=== PATIENT | female | born 1995 | race Caucasian/White ===

== ENCOUNTER → 2019-11-03 23:07 | Observation (INO) ==
[~2019-11-03 23:07] MED LIST: Rho Immune Globulin 1,500 UNIT SYRINGE IM ONE
== END | disposition home or self-care (01) ==
LOC: 1NENULAB
PROVIDERS: ADMIT Student in an Organized Health Care Education/Training Program; ATTEND Student in an Organized Health Care Education/Training Program

== ENCOUNTER → 2020-01-09 12:05 | Observation (INO) ==
[2020-01-09 10:27] VITALS: BP 135/88
[2020-01-09 10:59] LABS: Alanine Aminotransferase 13 Units/L (7-52); Aspartate Amino Transferase 20 Units/L (13-39); BUN/Creatinine Ratio 12 (6-26); Blood Urea Nitrogen 8 mg/dL (6-20); Lactate Dehydrogenase 167 Units/L (140-271); Uric Acid 4.5 mg/dL (2.3-7.6); eGFR For African Americans > 60 (> 60); eGFR For Non-African Americans > 60 (> 60)
[2020-01-09 11:07] LABS: Basophils % 0.2 %; Eosinophils % 0.2 %; Hematocrit 34.2 % (35.3-44.9); Hemoglobin 11.5 g/dL (11.5-15.4); Immature Granulocytes % 0.6 % (0-4); Lymphocytes # 2.3 K/mcL (0.6-4.6); Lymphocytes % 19.1 %; Mean Corpuscular HGB Conc 33.6 g/dL (31.6-35.5); Mean Corpuscular Hemoglobin 28.8 pg (28.0-33.3); Mean Corpuscular Volume 85.7 fL (83.0-100.0); Mean Platelet Volume 10.2 fL (9.4-12.4); Monocytes # 0.7 K/mcL (0.0-1.3); Monocytes % 5.7 %; Neutrophils # 8.9 K/mcL (1.6-8.9); Platelet Count 312 K/mcL (140-400); Red Blood Count 3.99 M/mcL (3.82-4.97); Red Cell Distribution Width 12.1 % (11.5-14.5); Segmented Neutrophils % 74.2 %
[2020-01-09 11:42] LABS: Protein/Creatinine Ratio,Urine 0.2 mg/mg (0.00-0.20)
== END | disposition home or self-care (01) ==
LOC: 1NENULAB
PROVIDERS: ADMIT Obstetrics & Gynecology; ATTEND Obstetrics & Gynecology

== ENCOUNTER 2020-01-15 04:05 | Inpatient (IN) ==
[2020-01-15] MEDS ORDERED: Metoclopramide 10 MG/2 ML VIAL IVP PRN (04:45)
[2020-01-15] MEDS ORDERED: *HR* FentaNYL (PF) 100 MCG/2 ML VIAL IVP PRN (04:45)
[2020-01-15] MEDS ORDERED: Famotidine 20 MG/2 ML VIAL IVP PRN (04:45)
[2020-01-15] MEDS ORDERED: Ondansetron 4 MG/2 ML VIAL IVP PRN (04:45)
[2020-01-15] MEDS ORDERED: Azithromycin 500 MG in 0.9 % Sodium Chloride 250 ML IVPB ONE (04:45)
[2020-01-15] MEDS ORDERED: Naloxone 0.4 MG/ML INJ IVP PRN (04:45)
[2020-01-15] MEDS: Ringers Solution, Lactated 1,000 ML IVC SCH ×2 (05:05→11:47)
[2020-01-15] MEDS: Oxytocin 20 units/ LR 1000 mL 20 UNIT/1,000 ML BAG IVC SCH ×2 (05:06→18:13)
[2020-01-15 05:20] LABS: Basophils # 0.1 K/mcL (0.0-0.2); Basophils % 0.4 %; Eosinophils # 0.1 K/mcL (0.0-0.6); Eosinophils % 0.4 %; Hematocrit 35.3 % (35.3-44.9); Hemoglobin 11.5 g/dL (11.5-15.4); Immature Granulocytes % 0.5 % (0-4); Lymphocytes # 3.6 K/mcL (0.6-4.6); Lymphocytes % 28.4 %; Mean Corpuscular HGB Conc 32.6 g/dL (31.6-35.5); Mean Corpuscular Volume 86.1 fL (83.0-100.0); Mean Platelet Volume 10.9 fL (9.4-12.4); Neutrophils # 7.8 K/mcL (1.6-8.9); Platelet Count 330 K/mcL (140-400); Red Cell Distribution Width 12.3 % (11.5-14.5); Segmented Neutrophils % 62.3 %; White Blood Count 12.5 K/mcL (4.3-11.1)
[2020-01-15 05:34] LABS: Protein/Creatinine Ratio,Urine 0.2 mg/mg (0.00-0.20)
[2020-01-15 05:35] LABS: Amphetamine Screen,Urine Negative ng/mL (Cutoff=1000); Barbiturate Screen,Urine Negative ng/mL (Cutoff=200); Benzodiazepines Screen,Urine Negative ng/mL (Cutoff=200); Cannabinoid Screen,Urine Negative ng/mL (Cutoff = 50); Cocaine Screen,Urine Negative ng/mL (Cutoff= 300); Opiate Screen,Urine Negative ng/mL (Cutoff=300); Phencyclidine Screen,Urine Negative ng/mL (Cutoff=25)
[2020-01-15 05:40] LABS: Alanine Aminotransferase 12 Units/L (7-52); Aspartate Amino Transferase 14 Units/L (13-39); BUN/Creatinine Ratio 13 (6-26); Blood Urea Nitrogen 8 mg/dL (6-20); Glucose 83 mg/dL (70-105); Lactate Dehydrogenase 177 Units/L (140-271); Uric Acid 3.6 mg/dL (2.3-7.6); eGFR For African Americans > 60 (> 60); eGFR For Non-African Americans > 60 (> 60)
[2020-01-15] MEDS ORDERED: EPHEDrine 50 MG/ML VIAL IVP PRN ×2 (06:08→07:10)
[2020-01-15] MEDS ORDERED: Epidural Premix (fent/bupiv) 110 ML EP SCH ×2 (06:15→07:15)
[2020-01-15] MEDS ORDERED: *HR* FentaNYL (PF) 100 MCG/2 ML VIAL EP ONE (07:10)
[2020-01-15] MEDS ORDERED: Ropivacaine/PF 0.2% 20 ML VIAL EP ONE (07:10)
[2020-01-15] MEDS ORDERED: *HR* FentaNYL (PF) 100 MCG/2 ML VIAL ONE (07:22)
[2020-01-15] MEDS ORDERED: Ropivacaine/PF 0.2% 20 ML VIAL ONE (07:22)
[2020-01-15] MEDS ORDERED: Lidocaine 1% 20 ML MDV ONE (16:47)
[2020-01-15] MEDS ORDERED: Measles/Mumps/Rubella Vacc 0.5 ML VIAL SQ PRN (18:14)
[2020-01-15] MEDS ORDERED: *HR* HYDROcodone/Acet 5/325 mg TABLET PO PRN (18:14)
[2020-01-15] MEDS ORDERED: Rho Immune Globulin 1,500 UNIT SYRINGE IM PRN (18:14)
[2020-01-15] MEDS ORDERED: Benzocaine/Menthol 56 GM AEROSOL SPRAY TP PRN (18:14)
[2020-01-15] MEDS ORDERED: Oxytocin 20 units/ LR 1000 mL 20 UNIT/1,000 ML BAG IVC SCH (18:14)
[2020-01-15] MEDS ORDERED: Lanolin 7 G OINT...G. TP PRN (18:14)
[2020-01-15] MEDS ORDERED: Acetaminophen 325 MG TABLET PO PRN (18:14)
[2020-01-15] MEDS: Ibuprofen 600 MG TABLET PO PRN (20:45)
[2020-01-16] MEDS: Ibuprofen 600 MG TABLET PO PRN ×2 (05:12→16:23)
[2020-01-16 06:33] LABS: Basophils # 0.1 K/mcL (0.0-0.2); Basophils % 0.3 %; Eosinophils % 0.1 %; Hematocrit 29.7 % (35.3-44.9); Immature Granulocytes % 0.6 % (0-4); Lymphocytes # 3.2 K/mcL (0.6-4.6); Lymphocytes % 20.1 %; Mean Corpuscular HGB Conc 32.3 g/dL (31.6-35.5); Mean Corpuscular Hemoglobin 28.2 pg (28.0-33.3); Mean Corpuscular Volume 87.4 fL (83.0-100.0); Mean Platelet Volume 10.2 fL (9.4-12.4); Monocytes # 1.1 K/mcL (0.0-1.3); Monocytes % 7.2 %; Neutrophils # 11.3 K/mcL (1.6-8.9); Platelet Count 263 K/mcL (140-400); Red Cell Distribution Width 12.4 % (11.5-14.5); Segmented Neutrophils % 71.7 %; White Blood Count 15.8 K/mcL (4.3-11.1)
[2020-01-16 06:36] LABS: Hemoglobin 9.6 g/dL (11.5-15.4)
[2020-01-16] MEDS ORDERED: Prenatal Vit/FA 1 EACH TABLET PO SCH (09:00)
[2020-01-16 16:34] VITALS: BP 127/78
== END 2020-01-16 18:08 | disposition home or self-care (01) | DRG 806 ==
LOC: 1NENULAB 04:05 → 1NENUOBS 20:06
PROVIDERS: ADMIT Obstetrics & Gynecology; ATTEND Obstetrics & Gynecology